=== PATIENT | female | born 1960 | race Caucasian/White ===

== ENCOUNTER 2016-03-23 19:23 | Emergency (ER) | payer BC ==
--- NOTE | 2016-03-23 21:30 | ER NURSING DOCUMENTATION ---
Nurse's Notes [facility] Name:Shelbie Michel Age:55 yrs Sex:Female :1960 Arrival Date:03/23/2016 Time:19:23 Bed6 Private MD: Diagnosis:Viral Upper Respiratory Infection (URI);Acute Sinusitis Presentation: 03/23 19:47 Presenting complaint: Patient states: "I have the flu.". Transition of care: patient rs was not received from another setting of care. 19:47 Acuity: RAUL 4 rs 19:47 Method Of Arrival: Private Vehicle rs Triage Assessment: 20:08 General: Appears in no apparent distress, well developed, well nourished, Behavior is rs cooperative, pleasant. Pain: Complains of pain in headache. Neuro: No deficits noted. Level of Consciousness is awake, alert, Oriented to person, place, time, event. Cardiovascular: No deficits noted. Capillary refill < 3 seconds Pulses are 3+ in left radial artery. Respiratory: Respiratory effort is even, unlabored, Respiratory pattern is regular, symmetrical. Derm: No deficits noted. Skin is pink, warm & dry. Historical: - Allergies: PENICILLINS; - Home Meds: 1. Synthroid Oral 2. Aspirin Oral - PMHx: Pulmonary embolism; - PSHx: Tonsillectomy; Appendectomy; Hysterectomy; - Tetanus: < 10 years. - Ebola Screening: : Patient negative for fever greater than or equal to 101.5 degrees Fahrenheit, and additional compatible Ebola Virus Disease symptoms. Patient denies exposure to infectious person. Patient denies travel to an Ebola-affected area in the 21 days before illness onset. No symptoms or risks identified at this time. . - Social history: Smoking status: Patient states was never smoker of tobacco. Patient/guardian denies using alcohol. Screenin:12 Infectious Disease Risk None. Abuse screen: Denies threats or abuse. Nutritional rs screening: No deficits noted. Assessment: 20:10 See Triage Assessment done by same RN. rs Vital Signs: 20:35 BP 128 / 75; Pulse 83; Resp 18; Temp 98.5; Pulse Ox 93% ; Weight 68.04 kg; Height 5 ft. jt 6 in. (167.64 cm); Pain 0/10; 20:35 Body Mass Index 24.21 (68.04 kg, 167.64 cm) jt ED Course: 19:25 Patient arrived in ED. jt 19:25 Sukhi Jones MD is Attending Physician. ia 19:48 Triage completed. rs 19:55 Notified ED Physician of patient's arrival and chief complaint. Dr. Jones notified. rs 20:12 Patient has correct armband on for positive identification. Adult w/ patient. Door rs closed. Noise minimized. 20:31 Ayah Paez RN is Primary Nurse. rs Administered Medications: 21:20 Drug: Tussionex - HYDROcodone-Homatropine Liquid 5ml 5 ml; Route: PO; rs 21:29 Follow up: Response: Pharmacy closed - take home med pack; Dispensed at discharge.; rs There was only enough tussionex to give each pateient one syringe. aware. Intake: Outcome: 21:08 Discharge ordered by . sc 21:18 Discharged to home ambulatory. rs 21:18 Condition: stable 21:18 Discharge instructions given to patient, family, Instructed on discharge instructions, Demonstrated understanding of instructions. 21:30 Patient left the ED. rs Signatures: Ayah Paez RN RN rs Sukhi Jones MD MD ia Tiera Cam
--- NOTE | 2016-03-23 21:30 | ER PHYSICIAN DOCUMENTATION ---
Physician Documentation [facility] Name:Shelbie Michel Age:55 yrs Sex:Female :1960 Arrival Date:03/23/2016 Time:19:23 Bed6 Private MD: Sukhi Rodriguez Disposition: 03/23/16 21:08 Discharged to Home/Self Care. Impression: Viral Upper Respiratory Infection (URI), Acute Sinusitis. - Condition is Good. - Discharge Instructions: SINUSITIS, Abx Tx, VIRAL URI Adult - URI, Viral, No Abx (Adult). - Prescriptions for Tussionex Pennkinetic ER 8- 10 mg/5 mL Oral Suspension, Sust. Release 12 hr - take 5 milliliter by ORAL route every 12 hours As needed; 120 milliliter. Zithromax Z- Eddie 250 mg Oral Tablet - take 1 tablet by ORAL route as directed for 5 days Day 1 - take two (2) tablets one time. Day 2, 3, 4 , 5 take one (1) tablet once daily.; 6 tablet. - Medical Reconciliation form form. - Follow up: Emergency Department; When: As needed; Reason: Worsening of condition. - Problem is new. - Symptoms have improved. HPI: 03/23 20:33 This 55 yrs old Female presents to ER via Private Vehicle with complaints of sc Flu Symptoms. 20:33 The patient or guardian reports cough, that is intermittent. Onset: The sc symptom(s)/episode began/occurred 2 day(s) ago. Severity of symptoms: At their worst the symptoms were mild. Modifying factors: The symptoms are alleviated by nothing. Associated signs and symptoms: Pertinent positives: fever, rhinorrhea. Historical: - Allergies: PENICILLINS; - Home Meds: 1. Synthroid Oral 2. Aspirin Oral - PMHx: Pulmonary embolism; - PSHx: Tonsillectomy; Appendectomy; Hysterectomy; - Tetanus: < 10 years. - Ebola Screening: : Patient negative for fever greater than or equal to 101.5 degrees Fahrenheit, and additional compatible Ebola Virus Disease symptoms. Patient denies exposure to infectious person. Patient denies travel to an Ebola-affected area in the 21 days before illness onset. No symptoms or risks identified at this time. . - Social history: Smoking status: Patient states was never smoker of tobacco. Patient/guardian denies using alcohol. ROS: 20:34 Eyes: Negative for injury, pain, redness, and discharge. sc Neck: Negative for injury, pain, and swelling. Cardiovascular: Negative for chest pain, palpitations, and edema. Abdomen/GI: Negative for abdominal pain, nausea, vomiting, diarrhea, and constipation. Back: Negative for injury and pain. : Negative for injury, bleeding, discharge, and swelling. MS/Extremity: Negative for injury and deformity. Skin: Negative for injury, rash, and discoloration. 20:34 Neuro: Negative for headache, weakness, numbness, tingling, and seizure. sc 20:34 Constitutional: Positive for body aches, fever, malaise. 20:34 ENT: Positive for sinus congestion. 20:34 Respiratory: Positive for cough, with no reported sputum. Exam: Head/Face: Normocephalic, atraumatic. Eyes: Pupils equal round and reactive to light, extra-ocular motions intact. Lids and lashes normal. Conjunctiva and sclera are non-icteric and not injected. Cornea within normal limits. Periorbital areas with no swelling, redness, or edema. Neck: Trachea midline, no thyromegaly or masses palpated, and no cervical lymphadenopathy. Supple, full range of motion without nuchal rigidity, or vertebral point tenderness. No meningismus. Chest/axilla: Normal chest wall appearance and motion. Nontender with no deformity. No lesions are appreciated. Cardiovascular: Regular rate and rhythm with a normal S1 and S2. No gallops, murmurs, or rubs. Normal PMI, no JVD. No pulse deficits. Abdomen/GI: Soft, non-tender, with normal bowel sounds. No distension or tympany. No guarding or rebound. No evidence of tenderness throughout. Back: No spinal tenderness. No costovertebral tenderness. Full range of motion. Skin: Warm, dry with normal turgor. Normal color with no rashes, no lesions, and no evidence of cellulitis. 20:34 MS/ Extremity: Pulses equal, no cyanosis. Neurovascular intact. Full, normal range sc of motion, negative Homans's, calves equal bilaterally. 20:34 Constitutional: The patient appears alert, awake, febrile. 20:34 ENT: Nose: nasal drainage, and is seen coming from both nares. 20:34 Respiratory: the patient does not display signs of respiratory distress, Respirations: normal, Breath sounds: are normal. 21:11 Neuro: Orientation: is normal. nv Vital Signs: 20:35 BP 128 / 75; Pulse 83; Resp 18; Temp 98.5; Pulse Ox 93% ; Weight 68.04 kg; Height 5 ft. jt 6 in. (167.64 cm); Pain 0/10; 20:35 Body Mass Index 24.21 (68.04 kg, 167.64 cm) jt MDM: 19:42 Patient medically screened. nv 20:35 Differential Diagnosis: Influenza Upper Respiratory Infection Sinusitis. Data reviewed: nv vital signs, nurses notes, lab test result(s), and as a result, I will discharge patient. Counseling: I had a detailed discussion with the patient and/or guardian regarding: the historical points, exam findings, and any diagnostic results supporting the discharge/admit diagnosis, lab results, the need for outpatient follow up, to return to the emergency department if symptoms worsen or persist or if there are any questions or concerns that arise at home. Dispensed Medications: 21:20 Drug: Tussionex - HYDROcodone-Homatropine Liquid 5ml 5 ml; Route: PO; rs 21:29 Follow up: Response: Pharmacy closed - take home med pack; Dispensed at discharge.; rs There was only enough tussionex to give each pateient one syringe. aware. Signatures: Ayah Paez RN RN rs Sukhi Jones MD MD nv
== END 2016-03-23 21:30 | disposition home or self-care (01) ==
LOC: ER 19:23
DX: J06.9 Acute upper respiratory infection, unspecified (principal); J01.90 Acute sinusitis, unspecified; Z79.82 Long term (current) use of aspirin; Z86.711 Personal history of pulmonary embolism
CPT/HCPCS: 87449; 99283